=== PATIENT | male | born 1990 | race Caucasian/White ===

== ENCOUNTER 2018-02-24 20:33 | Emergency (ER) | payer SELFPAY ==
--- NOTE | 2018-02-24 20:50 | Emergency Department Record ---
History of Present Illness - General Chief complaint: Dental Stated complaint: DENTAL PAIN Time Seen by Provider: 02/24/18 20:34 Source: Patient Mode of Arrival: Ambulatory Limitations: No limitations - History of Present Illness Initial comments: 27 yo male presents to ED for evaluation of pain to the lower wisdom teeth bilaterally. Patient reports that he saw his dentist 10 days ago, was started on Amoxicillin for an infection at the root of the tooth, was referred to oral surgeon for wisdom tooth removal. Patient finished amoxicillin 5 days ago, pain began to return 2 days ago. Patient denies fevers, chills or gingival swelling. Patient denies health problems at his baseline. MD complaint: Tooth pain Onset/Timin -: Days(s) Severity: Moderate Quality: Aching Consistency: Constant Improves with: Other (Antibiotics) Worsens with: None Context- Dental: History of dental caries - Related Data Home Medications Medication Instructions Recorded Confirmed Last Taken No Home Med [NO HOME MEDS] 02/24/18 02/24/18 Unknown Previous Rx's Medication Instructions Recorded Clindamycin HCl 300 mg PO QID #39 capsule 02/24/18 Naproxen 500 mg PO Q12H PRN #30 tablet 02/24/18 Allergies Allergy/AdvReac Type Severity Reaction Status Date / Time No Known Drug Allergies Allergy Verified 02/24/18 20:50 Review of Systems Constitutional: Denies: Chills, Fever, Malaise, Night sweats Eyes: Denies: Eye discharge, Eye pain ENT: Reports: Dental pain. Denies: Ear pain, Epistaxis Respiratory: Denies: Cough, Dyspnea Cardiovascular: Denies: Chest pain, Dyspnea on exertion Endocrine: Denies: Fatigue, Heat or cold intolerance Gastrointestinal: Denies: Abdominal pain, Nausea, Vomiting Genitourinary: Denies: Incontinence, Retention Musculoskeletal: Denies: Arthralgia, Back pain Skin: Denies: Bruising, Change in color Neurological: Denies: Abnormal gait, Confusion, Headache, Seizure Psychiatric: Denies: Anxiety Hematological/Lymphatic: Denies: Anemia, Blood Clots Physical Exam - General General Appearance: Alert, Oriented x3, Cooperative, Mild distress Limitations: No limitations - Head Head exam: Atraumatic, Normocephalic, Normal inspection Head exam detail: negative: Abrasion, Contusion, Patterson's sign, General tenderness, Hematoma, Laceration - Eye Eye exam: Normal appearance. negative: Conjunctival injection, Periorbital swelling, Periorbital tenderness, Scleral icterus - ENT Ear exam: negative: Auricular hematoma, Auricular trauma Nasal Exam: negative: Active bleeding, Discharge, Dried blood, Foreign body Mouth exam: negative: Drooling, Laceration, Muffled voice, Tongue elevation Teeth exam: Dental tenderness #, Other (Impacted wisdom teeth bilaterally, no gingival abscess present.). negative: Fractured tooth #, Gingival enlargement Throat exam: negative: Tonsillar erythema, R peritonsillar mass, L peritonsillar mass - Neck Neck exam: Normal inspection. negative: Meningismus, Tenderness - Respiratory Respiratory exam: Normal lung sounds bilaterally. negative: Rales, Respiratory distress, Rhonchi, Stridor - Cardiovascular Cardiovascular Exam: Regular rate, Normal rhythm, Normal heart sounds - GI/Abdominal GI/Abdominal exam: Soft. negative: Rebound, Rigid, Tenderness - Rectal Rectal exam: Deferred - exam: Deferred - Extremities Extremities exam: Normal inspection. negative: Calf tenderness, Pedal edema, Tenderness - Back Back exam: Denies: CVA tenderness (R), CVA tenderness (L) - Neurological Neurological exam: Alert, Normal gait, Oriented X3 - Psychiatric Psychiatric exam: Normal affect, Normal mood - Skin Skin exam: Normal color. negative: Abrasion Type of lesion: negative: abrasion Course - Reevaluation(s) Reevaluation #1: 02/24/18 20:55 Patient was seen and examined, will initiate Clindamicin and Naprosyn with instructions to follow-up with his oral surgeon in 3-5 days as without fail. Patient appears stable for discharge at this time. Disposition Disposition: Discharge Clinical Impression: Pain, dental, Impacted third molar tooth Disposition: Home, Self-Care Condition: (2) Stable Instructions: Dental Abscess (ED) Additional Instructions: Return to ED if your symptoms worsen or if you have any concerns. Clindamycin and Naprosyn as directed. Follow-up with your oral surgeon in 3-5 days as directed. Prescriptions: Clindamycin HCl 300 mg PO QID #39 capsule Naproxen 500 mg PO Q12H PRN #30 tablet PRN Reason: Pain - Mod To Severe (5-10) Forms: Patient Portal Access Time of Disposition: 20:50 Quality - Quality Measures Quality Measures: N/A - Blood Pressure Screening Does Patient Have Any of the Following: No Blood Pressure Classification: Hypertensive Reading Systolic Measurement: 149 Diastolic Measurement: 92 Screening for High Blood Pressure: < First Hypertensive BP, F/U Documented > [ G8950] First Hypertensive Follow-up Interventions: Referral to alternative/primary care provider.
[2018-02-24] MEDS: NAPROXEN 250 MG TABLET PO ONE (20:58)
[2018-02-24] MEDS: CLINDAMYCIN 150 MG CAP PO ONE (20:58)
== END 2018-02-24 21:16 | disposition home or self-care (01) ==
LOC: ER 20:33
DX: K01.1 Impacted teeth (principal)
CPT/HCPCS: 99282

== ENCOUNTER 2018-06-12 22:53 | Emergency (ER) | payer SELFPAY ==
[2018-06-12] MEDS ORDERED: ASPIRIN 81 MG CHEWABLE TABLET PO ONE (23:28)
[2018-06-12] MEDS ORDERED: KETOROLAC 30 MG/ML VIAL IVP ONE (23:30)
[2018-06-12 23:35] LABS: BASO % 0.5 % (0-6); GRAN % 40.8 % (47-80); HEMATOCRIT 48.4 % (42.0-52.0); HEMOGLOBIN 16.1 gm/dl (14.0-18.0); LYMPH % 45.2 % (16-45); MEAN CELL VOLUME 89.1 fl (81-97); MEAN CORPUSCULAR HEMOGLOBIN 29.7 pg (27-33); MEAN CORPUSCULAR HGB CONC 33.3 g/dl (32-36); MEAN PLATELET VOLUME 9.1 fl (7.4-10.4); MONO % 8.5 % (0-9); PLATELET COUNT 238 K/uL (130-400); RED BLOOD COUNT 5.43 M/uL (4.40-5.70); RED CELL DISTRIBUTION WIDTH 13.2 % (11.5-14.5); WHITE BLOOD COUNT W/O DIFF 8.6 K/uL (4.2-12.2)
[2018-06-12 23:48] LABS: BLOOD UREA NITROGEN 19 mg/dL (6-20); EST GLOMERULAR FILTRATION RATE > 60 mL/min
[2018-06-12 23:49] LABS: TOTAL PROTEIN 7.6 g/dL (6.6-8.7)
[2018-06-12 23:51] LABS: GLUCOSE,RANDOM 90 mg/dL (74-109)
[2018-06-12 23:54] LABS: ALB/GLOB RATIO 1.8 (1.1-1.8); ALBUMIN 4.9 g/dL (4.0-5.0); ALKALINE PHOSPHATASE 64 U/L (55-149); ALT/SGPT 15 U/L (<41); AST/SGOT 14 U/L (10.0-50.0); CREATINE PHOSPHOKINASE 143 U/L (39-308)
[2018-06-12 23:56] LABS: CKMB 1.6 ng/mL (<6.73)
--- NOTE | 2018-06-13 00:06 | Emergency Department Record ---
History of Present Illness - General Chief Complaint: Chest Pain Stated Complaint: SOB,CHEST PAIN Time Seen by Provider: 06/12/18 23:12 Source: Patient Mode of Arrival: Ambulatory Limitations: No limitations - History of Present Illness Initial Comments: pt has had cp and l arm pain for days. it gets worse w movement and inspiration Complaint: Chest pain Onset/Timin -: Days(s) Pain Location: Left chest Pain Radiation: LUE Severity: Severe Severity scale (1-10): 10 Quality: Aching Consistency: Constant Improves With: Nothing Worsens With: Exertion, Inspiration Treatments Prior to Arrival: None - Related Data Previous Rx's Medication Instructions Recorded Clindamycin HCl 300 mg PO QID #39 capsule 02/24/18 Naproxen 500 mg PO Q12H PRN #30 tablet 02/24/18 Allergies Allergy/AdvReac Type Severity Reaction Status Date / Time No Known Drug Allergies Allergy Verified 02/24/18 20:50 Travel Screening - Travel/Exposure Within Last 30 Days Have you traveled within the last 30 days?: No - Travel Symptoms Symptom Screening: None Review of Systems Reviewed: No additional complaints except as noted below Constitutional: Reports: As per HPI. Denies: Chills, Fever, Malaise, Night sweats, Weakness, Weight change Eyes: Reports: As per HPI. Denies: Eye discharge, Eye pain, Photophobia, Vision change ENT: Reports: As per HPI. Denies: Congestion, Dental pain, Ear pain, Epistaxis , Hearing loss, Throat pain Respiratory: Reports: As per HPI. Denies: Cough, Dyspnea, Hemoptysis, Stridor, Wheezes Cardiovascular: Reports: As per HPI. Denies: Arrhythmia, Chest pain, Dyspnea on exertion, Edema, Murmurs, Orthopnea, Palpitations, Paroxysmal nocturnal dyspnea, Rheumatic Fever, Syncope Endocrine: Reports: As per HPI. Denies: Fatigue, Heat or cold intolerance, Polydipsia, Polyuria Gastrointestinal: Reports: As per HPI. Denies: Abdominal pain, Constipation, Diarrhea, Hematemesis, Hematochezia, Melena, Nausea, Vomiting Genitourinary: Reports: As per HPI. Denies: Dysuria, Frequency, Hematuria, Incontinence, Retention, Testicular pain, Testicular mass, Urgency Musculoskeletal: Reports: As per HPI. Denies: Arthralgia, Back pain, Gout, Joint swelling, Myalgia, Neck pain Skin: Reports: As per HPI. Denies: Bruising, Change in color, Change in hair/ nails, Lesions, Pruritus, Rash Neurological: Reports: As per HPI. Denies: Abnormal gait, Confusion, Headache, Numbness, Paresthesias, Seizure, Tingling, Tremors, Vertigo, Weakness Psychiatric: Reports: As per HPI. Denies: Anxiety, Auditory hallucinations, Depression, Homicidal thoughts, Suicidal thoughts, Visual hallucinations Hematological/Lymphatic: Reports: As per HPI. Denies: Anemia, Blood Clots, Easy bleeding, Easy bruising, Swollen glands Past Medical History - SOCIAL HISTORY Smoking Status: Never smoker Alcohol Use: None Drug Use: None - RESPIRATORY Hx Respiratory Disorders: No - CARDIOVASCULAR Hx Cardio Disorders: No - NEURO Hx Neuro Disorders: No - GI Hx GI Disorders: No - Hx Genitourinary Disorders: No - ENDOCRINE Hx Endocrine Disorders: No - MUSCULOSKELETAL Hx Musculoskeletal Disorders: Yes Comment:: chronic neck pain - PSYCH Hx Psych Problems: No - HEMATOLOGY/ONCOLOGY Hx Hematology/Oncology Disorders: No Family Medical History Any Significant Family History?: No Family Hx Comment (NOT TO BE USED IN PLACE OF ITEMS BELOW): none Physical Exam - General General Appearance: Alert, Oriented x3, Cooperative, No acute distress - Head Head exam: Normal inspection - Eye Eye exam: Normal appearance, PERRL, EOMI Pupils: Normal accommodation - ENT ENT exam: Normal exam, Mucous membranes moist, Normal external ear exam, Normal orophraynx Ear exam: Normal external inspection. negative: External canal tenderness Nasal Exam: Normal inspection. negative: Discharge, Sinus tenderness Mouth exam: Normal external inspection, Tongue normal Teeth exam: Normal inspection. negative: Dental caries Throat exam: Normal inspection. negative: Tonsillar erythema, Tonsillar exudate - Neck Neck exam: Normal inspection, Full ROM. negative: Tenderness - Respiratory Respiratory exam: Chest wall tenderness, Other (pectus excavatum). negative: Respiratory distress - Cardiovascular Cardiovascular Exam: Regular rate, Normal rhythm, Normal heart sounds - GI/Abdominal GI/Abdominal exam: Soft, Normal bowel sounds. negative: Tenderness - Rectal Rectal exam: Deferred - exam: Deferred - Extremities Extremities exam: Normal inspection, Full ROM, Normal capillary refill. negative: Tenderness - Back Back exam: Reports: Normal inspection, Full ROM. Denies: Muscle spasm, Rash noted, Tenderness - Neurological Neurological exam: Alert, CN II-XII intact, Normal gait, Oriented X3 - Psychiatric Psychiatric exam: Normal affect, Normal mood - Skin Skin exam: Dry, Intact, Normal color, Warm Course Vital Signs 06/12/18 06/12/18 22:59 23:39 Temperature 98 F Pulse Rate 93 H Pulse Rate [ 86 [employer] ] Respiratory 20 18 Rate Blood Pressure 135/102 Blood Pressure 146/99 [Right Arm] Pulse Ox 99 100 - Reevaluation(s) Reevaluation #1: 06/13/18 00:26 pt feels better Medical Decision Making - Lab Data Result diagrams: 06/12/18 23:05 06/12/18 23:05 Lab Results 06/12/18 06/12/18 06/12/18 Range/Units 23:05 23:05 23:05 WBC 8.6 (4.2-12.2) K/uL RBC 5.43 (4.40-5.70) M/uL Hgb 16.1 (14.0-18.0) gm/dl Hct 48.4 (42.0-52.0) % MCV 89.1 (81-97) fl MCH 29.7 (27-33) pg MCHC 33.3 (32-36) g/dl RDW 13.2 (11.5-14.5) % Plt Count 238 (130-400) K/uL MPV 9.1 (7.4-10.4) fl Gran % 40.8 L (47-80) % Lymphocytes % 45.2 H (16-45) % Monocytes % 8.5 (0-9) % Eosinophils % 5.0 (0-6) % Basophils % 0.5 (0-6) % D-Dimer < 0.19 (0-0.59) mg/L FEU Sodium 144 (136-145) mmol/L Potassium 3.5 (3.4-4.5) mmol/L Chloride 102 (98-107) mmol/L Carbon Dioxide 27.0 (22-29) mmol/L Anion Gap 15.0 (7-16) BUN 19 (6-20) mg/dL Creatinine 1.0 (0.7-1.2) mg/dL Estimated GFR > 60 mL/min Random Glucose 90 (74-109) mg/dL Calcium 9.7 (8.6-10.0) mg/dL Total Bilirubin 0.40 (0.2-1.0) mg/dL AST 14 (10.0-50.0) U/L ALT 15 (<41) U/L Alkaline Phosphatase 64 (55-149) U/L Creatine Kinase 143 (39-308) U/L CK-MB (CK-2) 1.6 (<6.73) ng/mL Troponin T < 0.010 (0-0.010) ng/mL Total Protein 7.6 (6.6-8.7) g/dL Albumin 4.9 (4.0-5.0) g/dL Globulin 2.7 (1.4-4.8) gm/dL Albumin/Globulin Ratio 1.8 (1.1-1.8) Disposition Disposition: Discharge Clinical Impression: Chest wall pain Disposition: Home, Self-Care Condition: (1) Good Instructions: Chest Pain (ED), Chest Wall Pain (ED) Additional Instructions: follow up with family doctor. return sooner if worse. motrin for pain with food Forms: Patient Portal Access Quality - Quality Measures Quality Measures: N/A - Blood Pressure Screening Does Patient Have Any of the Following: No Blood Pressure Classification: Hypertensive Reading Systolic Measurement: 135 Diastolic Measurement: 102 Screening for High Blood Pressure: < Pre-Hypertensive BP, F/U Documented > [ G8950] Pre-Hypertensive Follow-up Interventions: Follow-up with rescreen every year.
--- NOTE | 2018-06-15 13:38 | RADIOLOGY REPORT ---
EXAM: CHEST 2 VIEWS HISTORY: LEFT-SIDED CHEST PAIN RADIATING TO LEFT ARM FOR TWO DAYS. TECHNIQUE: Upright PA and lateral views of the chest. COMPARISON: None. FINDINGS: The heart is not enlarged and the pulmonary vasculature is nondilated. The lungs and pleural spaces are clear. There is mild to moderate pectus excavatum deformity. Mild dextroconvex scoliosis of the mid thoracic spine. IMPRESSION: NO RADIOGRAPHIC EVIDENCE OF ACUTE CARDIOPULMONARY DISEASE. JOB NUMBER: [id number] [facility]
== END 2018-06-13 00:38 | disposition home or self-care (01) ==
LOC: ER 22:53
DX: R07.89 Other chest pain (principal); R06.02 Shortness of breath
CPT/HCPCS: 99284 ×2; 96374; 82550; 85025; 82553; 80053; 84484; 85379; 71046; 93005; 93010; J1885